=== PATIENT | male | born 1995 | race Caucasian/White ===

== ENCOUNTER 2022-01-27 07:35 | Day surgery (SDC) | payer BC ==
[2022-01-27] MEDS ORDERED: Ringers Lactate 1,000 ML IV ONE (08:14)
[2022-01-27 08:24] LABS: SARS-CoV-2 Antigen Rapid Res Negative (Negative)
[2022-01-27] MEDS ORDERED: CELECOXIB 100 MG CAPSULE ONE (09:59)
[2022-01-27] MEDS ORDERED: ACETAMINOPHEN 500 MG TAB ONE (09:59)
[2022-01-27] MEDS ORDERED: propofoL 200 MG/20 ML VIAL IV ONE (10:22)
[2022-01-27] MEDS ORDERED: FENTANYL CITR 100 MCG/2 ML ONE (10:22)
[2022-01-27] MEDS ORDERED: ONDANSETRON 4 MG/2 ML VIAL ONE (10:22)
[2022-01-27] MEDS ORDERED: ROCURONIUM 50 MG/5 ML VIAL IV ONE (10:22)
[2022-01-27] MEDS ORDERED: dexAMETHasone 10 MG/ML VIAL ONE (10:22)
[2022-01-27] MEDS ORDERED: LIDOCAINE 1% MPF 5 ML VIAL ONE (10:22)
[2022-01-27] MEDS ORDERED: MIDAZOLAM HCL 2 MG/2 ML INJ ONE (10:22)
[2022-01-27] MEDS: BUPIVACA 0.5%/EPI 0.0005%/PF 30 ML VIAL ONE ×2 (10:48→11:33)
[2022-01-27] MEDS: HYDROMORPHONE HCL 1 MG/ML INJ ONE ×2 (12:07→12:14)
--- NOTE | 2022-01-27 12:07 | P.OP ---
Date of Service: 01/27/22 Preoperative diagnosis: [Obstructive Sleep Apnea,] [Tonsil hypertrophy,] [Chronic tonsillitis,] [Tonsillolithiasis] Postoperative diagnosis: [Same] Procedure: Tonsillectomy and uvulectomy Surgeon: Sadia French MD Flour Worker: None Anesthesia: General via endotracheal tube IV fluids: 800 ml crystalloid Estimated blood loss: Minimal, less than 5 mL Specimen: uvula and [bilateral tonsils] Findings: Deep chronically inflamed crypts with tonsil stones Implants: None Indication: patient with persistent symptoms and findings in spite of good medical management. Details of operation: The patient was brought to the operating room and placed under general anesthesia via oral endotracheal tube. The head of bed was turned 90 degrees. A shoulder roll was placed and the neck was extended. A head drape was applied. The McIvor mouthgag was placed and suspended from the Holder stand. The oxygen concentration was confirmed with the anesthesiologist and was less than 40%. Weight-based dexamethasone was administered by the anesthesiologist. The soft palate was palpated and there was no submucous cleft. A red rubber catheter was placed in the nose and the tip withdrawn through the mouth and secured to the head drape for retraction of the soft palate. The tonsils were noted to be moderately enlarged with deep crypts, chronic inflammation and tonsil stones. The left tonsil was grasped with a straight Allis clamp. The Bovie electrocautery was used to incise the mucosa over the anterior pillar and identified the tonsillar capsule. The tonsil was dissected using cautery and blunt dissection until free from soft tissue attachments. A tonsil ball was placed to aid in hemostasis. In the lower midportion of the pole, there was an area of bleeding that was ligated with a Vicryl Endoloop. Then the right tonsil was removed in a similar manner. No suture was necessary on the right side. The red rubber catheter was then released and removed. The tip of the uvula was grasped using a DeBakey forceps and the spatula tip cautery was used to remove the lower two thirds of the uvula. The cut edge was left open to heal by secondary intention. The tonsillar fossea and remaining stump of uvula were injected with 0.5% Marcaine with epinephrine; a total of 1.5 milliliters was used. The oropharynx was irrigated with cold saline. After suctioning, a [place] sump orogastric tube was passed for decompression of the stomach. The red rubber catheter was removed and used to suction the oropharynx, nasopharynx, and nasal cavities. The McIvor mouthgag was removed. There was no evidence of injury to the teeth, lips, or tongue. The mandible was mobile. The patient was then awakened from anesthesia and extubated in the operating room, taken to the recovery room in stable condition. Disposition: The patient will be discharged home later today in the care of their family with written postoperative instructions and appropriate pain medications. They will follow-up in Dr. French's office in approximately 1 month. They are instructed to contact Dr. French's office for any bleeding or other concerns.
[2022-01-27 12:10] VITALS: O2SAT 98
[2022-01-27] MEDS ORDERED: HYDROCOD 2.5mg-ACETAMIN 108mg/5mL Soln ONE (13:01)
[2022-01-27 13:38] VITALS: BP 153/99; TEMP 96.8
== END 2022-01-27 13:15 | disposition home or self-care (01) ==
LOC: OR 07:35
PROVIDERS: ATTEND Otolaryngology
PROC: 0CBNXZZ Excision of Uvula, External Approach (ICD-10-PCS; 2022-01-27)
PROC: 0CTPXZZ Resection of Tonsils, External Approach (ICD-10-PCS; principal; 2022-01-27 10:15)
DX: J35.8 Other chronic diseases of tonsils and adenoids (principal); G47.33 Obstructive sleep apnea (adult) (pediatric); Z20.822 Contact with and (suspected) exposure to COVID-19
CPT/HCPCS: 36415; 88304; 87811; 42826; 42140; J2704; J2250; J3010; J1100; J1170; J7120; J2405